=== PATIENT | female | born 1995 | race Caucasian/White ===

== ENCOUNTER 2021-09-08 10:18 | Inpatient (IN) ==
[2021-09-08 11:13] LABS: Basophils # (auto) 0.01 K/uL (0-0.2); Basophils % (auto) 0.1 %; Eosinophils # (auto) 0.09 K/uL (0-0.5); Eosinophils % (auto) 0.8 %; Hematocrit (blood only) 31.4 % (37-47); Hemoglobin 10.6 g/dL (12.0-16.0); Immature Granulocytes # (auto) 0.05 K/uL (0.00-0.02); Immature Granulocytes % (auto) 0.5 %; Lymphocytes # (auto) 1.78 K/uL (1.2-3.4); Lymphocytes % (auto) 16.6 %; Mean Corpuscular Hemoglobin 31.1 pg (25-34); Mean Corpuscular Hgb Conc 33.8 g/dL (32-36); Mean Corpuscular Volume 92.1 fL (80-100); Mean Platelet Volume 10.5 fL (7.4-10.4); Monocytes # (auto) 0.75 K/uL (0.11-0.59); Neutrophils # (auto) 8.06 K/uL (1.4-6.5); Platelet Count 168 K/uL (130-400); RDW Coefficient of Variation 12.3 % (11.5-14.5); RDW Standard Deviation 41.4 fL (36.4-46.3); Red Blood Count 3.41 M/uL (4.2-5.4); White Blood Count 10.74 K/uL (4.8-10.8)
[2021-09-08 11:36] LABS: Albumin Globulin Ratio 0.9 (0.9-2); Albumin Level 3.1 gm/dl (3.4-5.0); BUN Creatinine Ratio 11.1 (10-20); Bilirubin,Total 0.3 mg/dl (0.2-1.0); Calcium 8.3 mg/dl (8.5-10.1); Creatinine Clr Calc Pharmacy 115.6 ml/min; Est GFR (African American) 103.7 ml/min; Est GFR (Non-African American) 89.5 ml/min; Globulin 3.3 gm/dl (2.5-4.0); Total Protein 6.4 gm/dl (6.0-8.3)
[2021-09-08 12:04] LABS: Creatinine Urine Random 70.4 mg/dl; Protein Creatinine Ratio Urine 0.2 (0-0.2); Total Protein Urine Random 17.1 mg/dl (0-11.9)
--- NOTE | 2021-09-08 12:05 | History & Physical Report ---
Date of Service September 08, 2021 Assessment & Plan (1) Dichorionic diamniotic twin gestation: (2) Gestational diabetes mellitus (GDM) affecting , antepartum: Plan: No evidence of rom, bps are elevated. labs reviewed and wnl, although creat 0.9. no sx currently. will cont to monitor bps as likely may meet criteria for gest htn in which case pt is aware that we would rec delivery. she would like to attempt vaginal delivery of twins. they are cephalic/cephalic. care collaborated with director of institutional research physician who is taking over care. History of Present Illness Chief Complaint: here for planned nsts. Primary Care Provider: Naida Aviles PA-C 26yo at 37+wks ega di/di twins presents to L&D for planned twin nsts but complaining of feeling off today. Notes walters and blurred vision in day prior. Resolved today but just feels off. Notes increased swelling. No vb. +FM x 2. Has been feeling on and off leaking for days. Its not copious but consistent. Was told by provider in office that it was possibly urine. She feels unsure. PNC c/b 1. Di/Di twins, growth us, aga, cephalic/cephalic and planning induction next . 2. GDM, diet controlled PNL Rh pos, RI, gbs neg. OBH: g1 GYNH: nl paps, no stds Allergies Allergy/AdvReac Type Severity Reaction Status Date / Time latex Allergy Mild itching Verified 09/08/21 12:11 Home Medications Medication Instructions Recorded Confirmed Type prenat.vits,adelita,ire-rccr-ujlik PO 03/07/21 09/04/21 History aspirin 81 mg tablet,delayed 81 mg PO DAILY 06/08/21 09/04/21 History release (Adult Low Dose Aspirin) ferrous sulfate 325 mg (65 mg 325 mg PO DAILY 07/27/21 09/04/21 History iron) tablet acetone (urine) test (Ketone Urine #50 ea 08/07/21 09/04/21 Rx Test) blood sugar diagnostic ([employer]on[employer]Touch #150 ea 08/07/21 09/04/21 Rx Verio test strips) lancets 33 gauge (OneTouch Delica #150 ea 08/07/21 09/04/21 Rx Plus Lancet) breast pump #1 ea 08/23/21 09/04/21 Rx Patient History Medical History History of chicken pox Surgical History History of tonsillectomy [place] teeth removed Family History (Updated 03/07/21 @ 11:56 by Jessy Baptiste, YOLY) Grandfather (Paternal) Diabetes Aunt Diabetes Denies family history of Ovarian cancer Prostate cancer Breast cancer Colorectal cancer Social History (Updated 03/07/21 @ 11:59 by Jessy Baptiste, YOLY) Smoking Status: Never smoker Second Hand Exposure: No; Hx Alcohol Use: No Hx Substance Use: No Preferred Language: Maltese Communication Ability: Effective Visual Impairment: No Limitations Hearing Ability: Normal Neurosurgery Spine Physician Required: No Beliefs That Will Affect Care: None marital status: Single marital status details: Ha Sotelo [phone] Current Living Situation: Significant Other Current Living Situation Comment: lives with FOB and Father. 1 cat and 1 dog. Father changes litter current occupational status: employed current occupation: salon Other Information That Helps Us Care for You: No Feels Safe at Home: Yes Safety Concerns: Feels Safe At This Time Assistive Devices: None Review of Systems as per Subjective / HPI Physical Exam Constitutional: WD/WN, vitals as above Gastrointestinal (Abdomen): soft gravid nt bedside u/s cephalic, cephalic Musculoskeletal: +2 edema nontender calves Neurologic: DTRS patellar +3 , no clonus Psychiatric: A+Ox3, euthymic affect Genitourinary: Manual OB Exam: + cervical dilation 1 cm, + cervical effacement 90% and + station -2 OB Exam Monitor Tracing: + external FHT monitor used (twin a and b reactive. ), + external uterine monitor used (irreg), + category I and + normal FHT variability Spec exam. no pool, some blood mucus, cx visually closed. nitrazine equivocal, ferning neg. Results & Data ([facility]) Vital Signs (Past 12 Hours) Vital Signs Temp Pulse Resp BP 09/08/21 11:03 76 149/96 H 09/08/21 10:47 56 L 144/95 H 09/08/21 10:33 97.9 F 20 09/08/21 10:29 63 139/94 Coding Level of Care Code None Diagnoses Dichorionic diamniotic twin gestation O30.049 Gestational diabetes mellitus (GDM) affecting , antepartum O24.419
--- NOTE | 2021-09-08 13:44 | Labor Progress Brief Note ---
Date of Service September 08, 2021 Subjective continues to be asx from pet standpoint Assessment & Plan (1) Preeclampsia: (2) Gestational diabetes mellitus (GDM) affecting , antepartum: (3) Dichorionic diamniotic twin gestation: Plan: Patient with elevated blood pressures at rest with sbp>160. This would be a severe blood pressure range, given this, plan on treating as pet and starting mag prophylaxis and beginning induction. Babies are both head down and she desires trial of vaginal delivery. Understands the risk including potential for vaginal delivery for one and stat c/s for second. c/s consent reviewed and signed. Exaplained Mag. Will start with pit and rothman. Patient wants epidural. Explained to patient and her support person, express understanding. Discussed with Dr. Arana who will be taking over care tomorrow. Physical Exam Physical Exam: nst reactive x 2 toco--sincere urine p/cr ratio 0.2 Results & Data ([facility]) Vital Signs (Past 12 Hours) Vital Signs Temp Pulse Resp BP 09/08/21 13:15 62 162/100 H 09/08/21 12:44 73 152/105 H 09/08/21 12:14 62 165/101 H 09/08/21 11:03 76 149/96 H 09/08/21 10:47 56 L 144/95 H 09/08/21 10:33 36.6 C 20 09/08/21 10:29 63 139/94 Coding Level of Care Code None Diagnoses Preeclampsia O14.90 Gestational diabetes mellitus (GDM) affecting , antepartum O24.419 Dichorionic diamniotic twin gestation O30.049
[2021-09-08] MEDS ORDERED: OXYTOCIN 30 UNITS/500 ML BAG IV PRN ×2 (13:50→13:52)
[2021-09-08] MEDS ORDERED: MAG SULFATE 4GM BOLUS FROM BAG IV ONE (13:52)
[2021-09-08] MEDS: NIFEdipine 10 MG CAP PO STA ×2 (14:05→14:06)
[2021-09-08] MEDS: LACTATED RINGER'S 1,000 ML IV PRN (14:17)
[2021-09-08] MEDS: MAGNESIUM SULFATE / WTR 40 GM/1,000 ML BAG IV SCH (14:20)
[2021-09-08 14:21] LABS: Hematocrit (blood only) 33.7 % (37-47); Hemoglobin 11.4 g/dL (12.0-16.0); Mean Corpuscular Hemoglobin 31.3 pg (25-34); Mean Corpuscular Hgb Conc 33.8 g/dL (32-36); Mean Corpuscular Volume 92.6 fL (80-100); Mean Platelet Volume 10.8 fL (7.4-10.4); Platelet Count 196 K/uL (130-400); RDW Coefficient of Variation 12.2 % (11.5-14.5); RDW Standard Deviation 41.9 fL (36.4-46.3); Red Blood Count 3.64 M/uL (4.2-5.4); White Blood Count 12.03 K/uL (4.8-10.8)
--- NOTE | 2021-09-08 14:51 | Labor Progress Brief Note ---
Date of Service September 08, 2021 Subjective Patient anxious and tearful but doing well. Lots going on. Got very hot from her Mag bolus. Assessment & Plan (1) Preeclampsia: (2) Gestational diabetes mellitus (GDM) affecting , antepartum: (3) Dichorionic diamniotic twin gestation: Plan: rothman in and will start pit. mag bolus given and now running at 2gm /hr. Did not give the nifedipine as bp was 140/90. Will continue to monitor closely. Will need to monitor hourly i/o. hourly blood sugars. fetus category 1 x 2. Admission and Anticipated Discharge Date Admission Date: September 08, 2021 Physical Exam Physical Exam: cx--/-2/mid/mod toco--sincere efm--both baselines 130s with mod variability, accels for both to 160s, no decels latex free rothman placed under direct visualization, filled with 30 sterile water Results & Data ([facility]) Vital Signs (Past 12 Hours) Vital Signs Temp Pulse Resp BP Pulse Ox 09/08/21 14:43 89 98 09/08/21 14:38 103 H 139/106 H 99 09/08/21 14:33 93 H 98 09/08/21 14:28 86 97 09/08/21 14:23 97 H 99 09/08/21 14:22 96 H 149/106 H 09/08/21 14:02 58 L 141/94 H 09/08/21 13:45 56 L 168/99 H 09/08/21 13:15 62 162/100 H 09/08/21 12:44 73 152/105 H 09/08/21 12:14 62 165/101 H 09/08/21 11:03 76 149/96 H 09/08/21 10:47 56 L 144/95 H 09/08/21 10:33 36.6 C 20 09/08/21 10:29 63 139/94 Coding Level of Care Code None Diagnoses Preeclampsia O14.90 Gestational diabetes mellitus (GDM) affecting , antepartum O24.419 Dichorionic diamniotic twin gestation O30.049
[2021-09-08] MEDS ORDERED: SODIUM CHLORIDE 0.9% INJ 10 ML VIAL ONE (20:19)
[2021-09-08] MEDS ORDERED: BUPIVACAINE 0.25% 30 ML VIAL ONE (20:19)
[2021-09-08] MEDS ORDERED: ePHEDrine sulfate 50 MG/ML AMP ONE (20:19)
[2021-09-08] MEDS ORDERED: fentaNYL citrate 100 MCG/2 ML VIAL ONE (20:20)
[2021-09-08] MEDS ORDERED: fentaNYL 2MCG/ML ROPIVACAINE 1.25MG/ML 100 ML BAG EPI ONE (20:21)
[2021-09-08] MEDS ORDERED: ePHEDrine sulfate 50 MG/ML AMP IV PRN (21:51)
[2021-09-08] MEDS ORDERED: ONDANSETRON INJ 2 MG/ML 2 ML VIAL IV PRN (21:51)
[2021-09-08] MEDS ORDERED: NALBUPHINE HCL INJ 10 MG/ML AMP IV PRN (21:51)
[2021-09-08] MEDS ORDERED: NALOXONE HCL 0.4 MG/1 ML VIAL/CARP IV PRN (21:51)
[2021-09-08] MEDS ORDERED: fentaNYL 2MCG/ML ROPIVACAINE 1.25MG/ML 100 ML BAG EPI PRN (21:51)
[2021-09-08] MEDS ORDERED: diphenhydrAMINE 50 MG/ML VIAL IV PRN (21:51)
[2021-09-08] MEDS ORDERED: NALOXONE HCL 1 MG in SODIUM CHLORIDE 0.9% 1000ML 1,000 ML IV PRN (21:51)
--- NOTE | 2021-09-08 22:09 | Anesthesiology Consultation ---
Date of Service September 08, 2021 Assessment & Plan (1) Encounter for pre-operative examination: Chart Review Chart Review: Patient NOT seen in Pre Admission Testing and Acceptable Risk for Labor Epidural Consults Requested none History Height/Weight Height: 5 ft 7 in Weight: 97.522 kg Allergies Allergy/AdvReac Type Severity Reaction Status Date / Time latex Allergy Mild itching Verified 09/08/21 12:11 Medications Home Medications Medication Instructions Recorded Confirmed Last Taken aspirin 81 mg tablet,delayed 81 mg PO DAILY 06/08/21 09/08/21 09/07/21 08:00 release (Adult Low Dose Aspirin) ferrous sulfate 325 mg (65 mg 325 mg PO DAILY 07/27/21 09/08/21 09/07/21 08:00 iron) tablet acetone (urine) test (Ketone Urine #50 ea 08/07/21 09/04/21 Unknown Test) blood sugar diagnostic ([employer]WD TechnologiesTouch #150 ea 08/07/21 09/04/21 Unknown Verio test strips) lancets 33 gauge (OneTouch Delica #150 ea 08/07/21 09/04/21 Unknown Plus Lancet) breast pump #1 ea 08/23/21 09/04/21 Unknown prenat.vits,adelita,fda-[id number]-knszr 1 tab PO DAILY 09/08/21 09/08/21 09/07/21 08:00 Active Medications Generic Name Dose Route Start Last Admin Trade Name Freq PRN Reason Stop Dose Admin Lactated Ringer's 1,000 mls @ 125 mls/hr 09/08/21 13:50 09/08/21 19:02 Lr IV 09/10/21 13:49 75 mls/hr .Q8H PRN Infusion L&D Protocol Protocol Oxytocin 30 units in 500 mls @ 16 mls/hr 09/08/21 13:52 09/08/21 20:30 Pitocin IV 09/10/21 13:51 0.96 units/hr .Q24H PRN 16 mls/hr Labor Induction/Augmentation Titration Protocol 0.96 UNITS/HR Magnesium Sulfate 40 gm in 1,000 mls @ 50 mls/hr 09/08/21 14:00 09/08/21 20:01 Magnesium Sulfate / Wtr IV 10/08/21 13:59 50 mls/hr .Q20H MIKE Infusion Past Medical History Medical History History of chicken pox Exercise / Class Metabolic Activity II 4-5 Yardwork/Stairs/Walk up hill Past Family History Family History Grandfather (Paternal) Diabetes Aunt Diabetes Denies family history of Ovarian cancer Prostate cancer Breast cancer Colorectal cancer Past Surgical History Surgical History History of tonsillectomy [place] teeth removed Past Anesthesia History No Hx of Anesthesia Complications and No Family Hx of Anesthesia Complications Social History Smoking Status: Never smoker Hx Alcohol Use: No Hx Substance Use: No Physical Exam Vital Signs Last Vital Signs Temp 36.9 C 09/08/21 19:30 Pulse 84 09/08/21 22:39 Resp 18 09/08/21 19:53 BP 99/65 L 09/08/21 22:38 Pulse Ox 100 09/08/21 22:39 Testing Laboratory Results 09/08/21 14:03 09/08/21 11:05 Blood Type A Positive 09/08/21 11:05 Antibody Screen NEGATIVE 09/08/21 11:05 09/08/21 09/08/21 09/08/21 22:09 20:12 17:45 POC Glucose 79 88 75 09/08/21 09/08/21 09/08/21 16:47 15:47 15:44 POC Glucose 85 75 69 L*
[2021-09-08] MEDS ORDERED: ACETAMINOPHEN 500 MG TAB PO ONE (22:19)
--- NOTE | 2021-09-09 00:20 | Labor Progress Brief Note ---
Date of Service September 09, 2021 Subjective comfortable with epidural Assessment & Plan (1) Dichorionic diamniotic twin gestation: Plan: arom and iupc placed to run pitocin. fetus category one x 2. patient is comfor table with epidural . Admission and Anticipated Discharge Date Admission Date: September 08, 2021 Physical Exam Physical Exam: cx--/-2 toco--difficult tracing because belly is so tight, q2-4, pit at 18, iupc placed arom--copious clear efm--reactive nst x 2, baseline 130 for both, mod variability, +accels , no decels Results & Data ([facility]) Vital Signs (Past 12 Hours) Vital Signs Temp Pulse Resp BP Pulse Ox 09/09/21 00:14 95 H 98 09/09/21 00:13 88 133/86 09/09/21 00:09 87 99 09/09/21 00:06 103 H 92 09/09/21 00:04 110 H 100 09/08/21 23:59 93 H 125/77 98 09/08/21 23:54 90 98 09/08/21 23:49 89 96 09/08/21 23:46 88 94 09/08/21 23:44 86 95 09/08/21 23:43 85 116/69 09/08/21 23:40 83 94 09/08/21 23:39 82 94 09/08/21 23:34 84 97 09/08/21 23:29 88 98 09/08/21 23:28 90 123/71 09/08/21 23:24 84 98 09/08/21 23:19 93 H 97 09/08/21 23:15 86 119/69 09/08/21 23:14 87 96 09/08/21 23:09 84 98 09/08/21 23:04 88 97 09/08/21 22:59 79 98 09/08/21 22:58 88 118/74 09/08/21 22:55 96 H 118/62 09/08/21 22:54 96 H 99 09/08/21 22:52 89 130/64 09/08/21 22:49 96 H 135/66 99 09/08/21 22:45 90 152/65 H 09/08/21 22:44 90 99 09/08/21 22:43 88 124/68 09/08/21 22:39 84 100 09/08/21 22:38 83 99/65 L 09/08/21 22:34 71 99 09/08/21 22:29 122 H 100 09/08/21 22:24 107 H 100 09/08/21 22:20 105 H 155/100 H 09/08/21 22:19 96 H 100 09/08/21 22:14 119 H 100 09/08/21 22:09 86 100 09/08/21 22:04 91 H 97 09/08/21 21:59 95 H 99 09/08/21 21:54 81 98 09/08/21 21:49 86 133/83 100 09/08/21 21:44 99 H 99 09/08/21 21:39 82 99 09/08/21 21:34 85 99 09/08/21 21:29 88 100 09/08/21 21:24 87 99 09/08/21 21:19 86 100 09/08/21 21:18 90 136/88 09/08/21 21:14 93 H 99 09/08/21 21:09 100 H 99 09/08/21 21:04 95 H 98 09/08/21 20:59 99 H 99 09/08/21 20:54 93 H 99 09/08/21 20:49 92 H 140/93 100 09/08/21 20:44 92 H 100 09/08/21 20:39 90 100 09/08/21 20:34 99 H 99 09/08/21 20:28 99 H 98 09/08/21 20:23 97 H 99 09/08/21 20:19 90 138/90 09/08/21 20:18 97 H 98 09/08/21 20:13 107 H 98 09/08/21 20:08 91 H 99 09/08/21 20:03 91 H 98 09/08/21 19:58 91 H 98 09/08/21 19:53 91 H 18 99 09/08/21 19:50 91 H 145/91 H 09/08/21 19:48 97 H 98 09/08/21 19:43 101 H 98 09/08/21 19:38 109 H 96 09/08/21 19:33 119 H 96 09/08/21 19:32 121 H 135/99 09/08/21 19:30 36.9 C 115 H 18 139/102 H 09/08/21 19:28 122 H 97 09/08/21 19:23 110 H 97 09/08/21 19:18 115 H 97 09/08/21 19:13 97 H 99 09/08/21 19:08 96 H 147/93 H 98 09/08/21 19:03 83 100 09/08/21 18:58 86 100 09/08/21 18:53 79 138/87 99 09/08/21 18:48 79 100 09/08/21 18:43 85 98 09/08/21 18:38 81 142/90 H 98 09/08/21 18:33 69 99 09/08/21 18:28 72 99 09/08/21 18:23 77 135/82 99 09/08/21 18:20 20 09/08/21 18:18 91 H 99 09/08/21 18:13 80 98 09/08/21 18:08 79 144/92 H 97 09/08/21 18:03 84 98 09/08/21 17:58 85 98 09/08/21 17:54 84 143/86 H 09/08/21 17:53 93 H 97 09/08/21 17:48 79 98 09/08/21 17:43 84 98 09/08/21 17:38 77 134/87 96 09/08/21 17:33 84 96 09/08/21 17:28 75 98 09/08/21 17:23 74 130/87 97 09/08/21 17:20 20 09/08/21 17:18 73 97 09/08/21 17:13 70 97 09/08/21 17:09 68 137/89 09/08/21 17:08 70 97 09/08/21 17:03 72 98 09/08/21 16:58 68 97 09/08/21 16:53 77 97 09/08/21 16:48 77 98 09/08/21 16:43 71 97 09/08/21 16:39 67 131/88 09/08/21 16:38 70 98 09/08/21 16:33 86 97 09/08/21 16:30 36.7 C 09/08/21 16:28 76 99 09/08/21 16:23 69 135/85 98 09/08/21 16:20 20 09/08/21 16:18 70 97 09/08/21 16:13 64 98 09/08/21 16:10 82 144/86 H 09/08/21 16:08 71 98 09/08/21 16:03 78 98 09/08/21 15:58 69 97 09/08/21 15:53 70 141/88 H 98 09/08/21 15:48 74 99 09/08/21 15:43 73 98 09/08/21 15:39 61 143/97 H 09/08/21 15:38 67 98 09/08/21 15:33 82 98 09/08/21 15:28 78 99 09/08/21 15:24 72 20 141/91 H 09/08/21 15:23 68 98 09/08/21 15:20 20 09/08/21 15:18 77 99 09/08/21 15:13 65 99 09/08/21 15:09 71 20 145/100 H 09/08/21 15:08 69 97 09/08/21 15:03 75 98 09/08/21 14:58 101 H 97 09/08/21 14:53 78 20 149/94 H 98 09/08/21 14:48 85 98 09/08/21 14:43 89 98 09/08/21 14:38 103 H 20 139/106 H 99 09/08/21 14:33 93 H 98 09/08/21 14:28 86 97 09/08/21 14:23 97 H 99 09/08/21 14:22 96 H 20 149/106 H 09/08/21 14:02 58 L 141/94 H 09/08/21 13:45 56 L 168/99 H 09/08/21 13:15 62 162/100 H 09/08/21 12:44 73 152/105 H 09/08/21 12:30 36.6 C Coding Level of Care Code None Diagnoses Dichorionic diamniotic twin gestation O30.049
--- NOTE | 2021-09-09 00:49 | Communication Note ---
Date of Service: September 09, 2021 contractions are poor by iupc. Will increase pit max to 30. fetus category one x 2.
[2021-09-09] MEDS: LACTATED RINGER'S 1,000 ML IV PRN (03:30)
--- NOTE | 2021-09-09 05:28 | Labor Progress Brief Note ---
Date of Service September 09, 2021 Subjective doing well Assessment & Plan (1) Dichorionic diamniotic twin gestation: (2) Preeclampsia: Plan: allow to labor down, both babies reassuring. Will likely move to OR for [facility] in about one hour. anticipate . Admission and Anticipated Discharge Date Admission Date: September 08, 2021 Physical Exam Physical Exam: cx-- toco--difficult tracing. q2-4min, pit at 26 efm--baby1--120s with mod variability, accels to 130s, no decels baby2--110s with mod variabiltiy, accels to 130s, no decels Results & Data ([facility]) Vital Signs (Past 12 Hours) Vital Signs Temp Pulse Resp BP Pulse Ox 09/09/21 05:24 86 100 09/09/21 05:19 89 99 09/09/21 05:14 83 99 09/09/21 05:09 92 H 99 09/09/21 05:04 90 99 09/09/21 04:59 70 99 09/09/21 04:55 76 133/89 09/09/21 04:54 76 98 09/09/21 04:49 82 98 09/09/21 04:44 73 97 09/09/21 04:40 77 137/91 09/09/21 04:39 76 95 09/09/21 04:34 70 95 09/09/21 04:29 72 96 09/09/21 04:25 75 125/85 09/09/21 04:24 73 95 09/09/21 04:19 74 96 09/09/21 04:14 72 96 09/09/21 04:11 71 133/87 09/09/21 04:09 70 96 09/09/21 04:04 89 98 09/09/21 04:00 36.6 C 18 09/09/21 03:59 96 H 97 09/09/21 03:57 80 137/77 09/09/21 03:54 82 97 09/09/21 03:50 68 94 09/09/21 03:49 64 95 09/09/21 03:44 67 95 09/09/21 03:43 67 94 09/09/21 03:41 67 129/83 09/09/21 03:39 69 97 09/09/21 03:38 68 94 09/09/21 03:34 68 93 09/09/21 03:30 18 09/09/21 03:29 68 92 09/09/21 03:26 74 94 09/09/21 03:25 69 121/78 09/09/21 03:24 63 91 09/09/21 03:19 67 91 09/09/21 03:14 66 91 09/09/21 03:10 70 110/73 09/09/21 03:09 67 90 09/09/21 03:05 65 94 09/09/21 03:04 67 92 09/09/21 02:59 66 92 09/09/21 02:55 64 121/78 09/09/21 02:54 65 91 09/09/21 02:49 65 91 09/09/21 02:44 70 90 09/09/21 02:40 70 120/78 09/09/21 02:39 68 91 09/09/21 02:34 68 91 09/09/21 02:30 37.0 C 18 09/09/21 02:29 66 92 09/09/21 02:25 70 121/79 09/09/21 02:24 65 94 09/09/21 02:23 66 94 09/09/21 02:19 77 95 09/09/21 02:15 68 94 09/09/21 02:14 87 94 09/09/21 02:11 65 129/80 09/09/21 02:10 79 94 09/09/21 02:09 79 95 09/09/21 02:05 77 94 09/09/21 02:04 77 95 09/09/21 01:59 84 95 09/09/21 01:54 87 129/80 95 09/09/21 01:51 82 113/71 09/09/21 01:49 83 96 09/09/21 01:48 93 H 125/78 09/09/21 01:45 82 114/66 09/09/21 01:44 86 96 09/09/21 01:42 71 134/82 09/09/21 01:39 77 128/81 98 09/09/21 01:34 81 97 09/09/21 01:30 18 09/09/21 01:29 88 99 09/09/21 01:28 86 137/87 09/09/21 01:24 87 97 09/09/21 01:20 80 94 09/09/21 01:19 76 97 09/09/21 01:15 77 128/79 94 09/09/21 01:14 84 96 09/09/21 01:09 83 96 09/09/21 01:04 90 99 09/09/21 01:00 18 09/09/21 00:59 88 97 09/09/21 00:58 82 129/89 09/09/21 00:54 82 99 09/09/21 00:49 83 95 09/09/21 00:44 87 98 09/09/21 00:43 93 H 140/96 09/09/21 00:39 87 96 09/09/21 00:34 88 100 09/09/21 00:29 89 100 09/09/21 00:28 93 H 139/95 09/09/21 00:24 89 97 09/09/21 00:19 84 96 09/09/21 00:14 95 H 98 09/09/21 00:13 88 133/86 09/09/21 00:10 36.9 C 09/09/21 00:09 87 99 09/09/21 00:06 103 H 92 09/09/21 00:04 110 H 100 09/08/21 23:59 93 H 125/77 98 09/08/21 23:54 90 98 09/08/21 23:49 89 96 09/08/21 23:46 88 94 09/08/21 23:44 86 95 09/08/21 23:43 85 116/69 09/08/21 23:40 83 94 09/08/21 23:39 82 94 09/08/21 23:34 84 97 09/08/21 23:29 88 98 09/08/21 23:28 90 123/71 09/08/21 23:24 84 98 09/08/21 23:19 93 H 97 09/08/21 23:15 86 119/69 09/08/21 23:14 87 96 09/08/21 23:09 84 98 09/08/21 23:04 88 97 09/08/21 22:59 79 98 09/08/21 22:58 88 118/74 09/08/21 22:55 96 H 118/62 09/08/21 22:54 96 H 99 09/08/21 22:52 89 130/64 09/08/21 22:49 96 H 135/66 99 09/08/21 22:45 90 152/65 H 09/08/21 22:44 90 99 09/08/21 22:43 88 124/68 09/08/21 22:39 84 100 09/08/21 22:38 83 99/65 L 09/08/21 22:34 71 99 09/08/21 22:29 122 H 100 09/08/21 22:24 107 H 100 09/08/21 22:20 105 H 155/100 H 09/08/21 22:19 96 H 100 09/08/21 22:14 119 H 100 09/08/21 22:09 86 100 09/08/21 22:04 91 H 97 09/08/21 21:59 95 H 99 09/08/21 21:54 81 98 09/08/21 21:49 86 133/83 100 09/08/21 21:44 99 H 99 09/08/21 21:39 82 99 09/08/21 21:34 85 99 09/08/21 21:29 88 100 09/08/21 21:24 87 99 09/08/21 21:19 86 100 09/08/21 21:18 90 136/88 09/08/21 21:14 93 H 99 09/08/21 21:09 100 H 99 09/08/21 21:04 95 H 98 09/08/21 20:59 99 H 99 09/08/21 20:54 93 H 99 09/08/21 20:49 92 H 140/93 100 09/08/21 20:44 92 H 100 09/08/21 20:39 90 100 09/08/21 20:34 99 H 99 09/08/21 20:28 99 H 98 09/08/21 20:23 97 H 99 09/08/21 20:19 90 138/90 09/08/21 20:18 97 H 98 09/08/21 20:13 107 H 98 09/08/21 20:08 91 H 99 09/08/21 20:03 91 H 98 09/08/21 19:58 91 H 98 09/08/21 19:53 91 H 18 99 09/08/21 19:50 91 H 145/91 H 09/08/21 19:48 97 H 98 09/08/21 19:43 101 H 98 09/08/21 19:38 109 H 96 09/08/21 19:33 119 H 96 09/08/21 19:32 121 H 135/99 09/08/21 19:30 36.9 C 115 H 18 139/102 H 09/08/21 19:28 122 H 97 09/08/21 19:23 110 H 97 09/08/21 19:18 115 H 97 09/08/21 19:13 97 H 99 09/08/21 19:08 96 H 147/93 H 98 09/08/21 19:03 83 100 09/08/21 18:58 86 100 09/08/21 18:53 79 138/87 99 09/08/21 18:48 79 100 09/08/21 18:43 85 98 09/08/21 18:38 81 142/90 H 98 09/08/21 18:33 69 99 09/08/21 18:28 72 99 09/08/21 18:23 77 135/82 99 09/08/21 18:20 20 09/08/21 18:18 91 H 99 09/08/21 18:13 80 98 09/08/21 18:08 79 144/92 H 97 09/08/21 18:03 84 98 09/08/21 17:58 85 98 09/08/21 17:54 84 143/86 H 09/08/21 17:53 93 H 97 09/08/21 17:48 79 98 09/08/21 17:43 84 98 09/08/21 17:38 77 134/87 96 09/08/21 17:33 84 96 09/08/21 17:28 75 98 Coding Level of Care Code None Diagnoses Dichorionic diamniotic twin gestation O30.049 Preeclampsia O14.90
[2021-09-09] MEDS: MAGNESIUM SULFATE / WTR 40 GM/1,000 ML BAG IV SCH (06:08)
--- NOTE | 2021-09-09 06:54 | Communication Note ---
Date of Service: September 09, 2021 Bolused patient twice overnight per patient and nursing request for increased back pain. Placed patient on monitor and VSS. Used 3ml of 2% lidocaine and 0.5% ropivicaine with each bolus. Obtained good pain relief after each bolus.
--- NOTE | 2021-09-09 08:45 | Delivery Summary ---
Vaginal Delivery Summary Date of Service September 09, 2021 Vaginal Delivery Summary Pre-operative Diagnosis: di di twin iup at 37 4/7 weeks severe pet gestational diabetes Post-operative Diagnosis: same Procedure: rothman bulb for cervical ripening pitocin induction arom for clear fluid of baby A/right baby EBL: 200cc Anesthesia: epidural Procedure: The patient presented to labor and delivery for nsts. Her pressures were found to be elevated and she was admitted with pet with severe features. Labs were normal. Both babies were cephalic and she elected for attempt at vaginal delivery. She had a rothman bulb for cervical ripening and concurrent pitocin. She then underwent an epidural just after the bulb fell out. She was then 4cm and arom done. She progressed to 9cm and then labored down for an hour. She was then c/c/+2 and was transferred to the OR. Once all were assembled, pushing started. The patient pushed for approximately 4 contractions to deliver a viable male infant in miguel position. The nose and mouth were bulb suctioned on the perineum and the rest of the was then delivered without difficulty. A nuchal cord x 1 was reduced. The nose and mouth were again bulb suctioned. The cord was clamped and cut and the was handed off to the awaiting peds for drying and attention. Cord blood and segment obtained. Dr. Arana, present for delivery, was operating the ultrasound. FHT on baby B reassuring and using fundal pressure, she pushed the head into my hand and I guided the cephalic into the cervix and then did arom of baby B for clear fluid. The contractions unfortunately decreased and spaced after the delivery of the first baby. After waiting an hour, the cephalic at 0 station and cx was 9cm. Could not push through this cervix. So she was taken out of the stirrups and placed in supine position. She got painful and her epidural was redosed. Will allow the patient to labor down. FHT in the 120s with mod variability for baby B. Patient left in the care of Dr. Arana. [facility] Vaginal Delivery Charge Delivery Type Details:
[2021-09-09] MEDS ORDERED: LIDOCAINE 1% LOCAL 20 ML VIAL ONE (09:25)
[2021-09-09] MEDS ORDERED: SODIUM CHLORIDE 0.9% 250 ML IV PRN ×2 (09:29→14:38)
[2021-09-09] MEDS ORDERED: METHYLERGONOVINE MALEATE 0.2 MG/ML AMP ONE (09:35)
[2021-09-09] MEDS: OXYTOCIN 30 UNITS/500 ML BAG IV PRN ×2 (09:41→10:10)
[2021-09-09 09:43] LABS: Basophils # (auto) 0.01 K/uL (0-0.2); Basophils % (auto) 0.1 %; Hematocrit (blood only) 29.9 % (37-47); Hemoglobin 10.1 g/dL (12.0-16.0); Immature Granulocytes # (auto) 0.06 K/uL (0.00-0.02); Immature Granulocytes % (auto) 0.4 %; Lymphocytes # (auto) 1.06 K/uL (1.2-3.4); Lymphocytes % (auto) 7.7 %; Mean Corpuscular Hemoglobin 31.1 pg (25-34); Mean Platelet Volume 10.2 fL (7.4-10.4); Monocytes # (auto) 0.67 K/uL (0.11-0.59); Monocytes % (auto) 4.9 %; Neutrophils # (auto) 11.95 K/uL (1.4-6.5); Neutrophils % (auto) 86.9 %; Platelet Count 174 K/uL (130-400); RDW Coefficient of Variation 12.2 % (11.5-14.5); RDW Standard Deviation 41.6 fL (36.4-46.3); Red Blood Count 3.25 M/uL (4.2-5.4); White Blood Count 13.75 K/uL (4.8-10.8)
[2021-09-09 09:45] LABS: Mean Corpuscular Hgb Conc 33.8 g/dL (32-36)
[2021-09-09] MEDS ORDERED: miSOPROStoL 200 MCG TAB ONE (10:01)
--- NOTE | 2021-09-09 10:10 | Delivery Summary ---
Vaginal Delivery Summary Date of Service September 09, 2021 Vaginal Delivery Summary (this was 2nd twin delivery) and 1st Degree LAC The patient had delivery of twin A previously by Dr. Ledbetter. At approximately 2+hours later, patient with urge to push now completely dilated and I was called for delivery. Patient pushed to deliver a viable male Apgars 8 and 9 via over small vaginal/1st degree perineal laceration. Mouth and nose bulb suctioned at perineum. Shoulders and body delivered with ease. was vigorous and crying at . Cord clamped and infant to maternal abdomen where the cord was then doubly clamped and cut. Placenta delivered spontaneously and intact, three-vessel cord. Hemostasis not achieved with dilute pitocin and uterine massage and in fact blood pouring from vagina. Street Photographer's hand in uterus and swept x 2 with no retained poc's. Bimanual massage started and cytotec 800mcg placed rectally. Evidence of continued heavy bleeding c/w uterine atony and bakri balloon readied and placed, 400cc sterile water infused and ff firm at umbilicus. BP had been noted in 90s/60s during this process and IM methergine given and 2nd iv site placed. T&C x 2 units and stat cbc sent with obtaining 2nd iv site, which was done by anesthesia. Bhatia catheter placed for continual drainage of the bladder under sterile conditions. Cervix and sulci intact. Local lidocaine 1% given for anesthesia and vaginal laceration repaired in usual fashion with 3-0 vicryl. Right periurethral laceration repaired with 3-0 vicryl after local lidocaine anesthesia. EBL 1500 cc (which included ebl from prior delivery). Patient readied to move upstairs from OR. Blood ready but held. CBC was pending and so pending plt count anesth was waiting to remove epidural. Events reviewed with patient and partner. Possible extreme need for surgery to manage bleeding and/or future hysterectomy reviewed. Will keep them up to date on my thoughts. Questions answered to their apparent satisfaction. [facility] Vaginal Delivery Charge Delivery Type Details: (this was 2nd twin delivery) and 1st Degree LAC
[2021-09-09] MEDS ORDERED: miSOPROStoL 200 MCG TAB PR ONE (10:23)
[2021-09-09] MEDS ORDERED: HYDROCORTISONE ACETATE 25 MG SUPP PR PRN (10:23)
[2021-09-09] MEDS ORDERED: BENZOCAINE 20% AER SPR 82.5 GM CAN EXT PRN (10:23)
[2021-09-09] MEDS ORDERED: oxyCODONE/ACETAMINOPHEN 5mg/325mg TAB PO PRN (10:23)
[2021-09-09] MEDS ORDERED: DIPHTHERIA/TETANUS/PERTUSSIS 0.5 ML SYR/VIAL IM ONE (10:23)
[2021-09-09] MEDS ORDERED: METHYLERGONOVINE MALEATE 0.2 MG/ML AMP IM ONE (10:23)
[2021-09-09] MEDS: IBUPROFEN 600 MG TAB PO PRN ×3 (11:21→20:46)
[2021-09-09] MEDS: OXYTOCIN 20 UNITS in LACTATED RINGER'S 1,000 ML IV SCH ×2 (11:27→19:25)
[2021-09-09] MEDS: ceFAZolin 2000MG 2,000 MG/15 ML SYR IV SCH ×2 (11:54→20:49)
--- NOTE | 2021-09-09 12:27 | Obstetrical Progress Note ---
Date of Service September 09, 2021 Assessment & Plan (1) Dichorionic diamniotic twin gestation: (2) Gestational diabetes mellitus (GDM) affecting , antepartum: (3) Preeclampsia: Plan: pt clinically stable. bps are ok, not severe range and just measured output from bakri. trying to gauge when and if to restart mag but want to watch output. urine output was 200cc. will see what ongoing output from bakri is as well as hgb next due to be drawn at 2pm and bp trend. Pt and partner aware of plan. Deny questions. Admission and Anticipated Discharge Date Admission Date: September 08, 2021 Subjective pt doing well. denies complaints. holding baby a. partner by bedside. Review of Systems Constitutional: as per Subjective / HPI Physical Exam Constitutional: WD/WN, vitals as above Psychiatric: A+Ox3, euthymic affect Genitourinary: FF at u. drainage from bakri about 175cc, watery. drained to monitor. Results & Data ([facility]) Vital Signs (Past 12 Hours) Vital Signs Temp Pulse Resp BP Pulse Ox 09/09/21 12:21 89 98 09/09/21 12:18 82 121/69 09/09/21 12:16 92 H 97 09/09/21 12:11 99.3 F 87 20 100 09/09/21 12:06 97 H 99 09/09/21 12:02 97 H 20 119/75 09/09/21 12:01 97 H 99 09/09/21 11:56 86 99 09/09/21 11:51 99 H 100 09/09/21 11:47 93 H 131/84 09/09/21 11:46 91 H 100 09/09/21 11:41 94 H 100 09/09/21 11:36 93 H 100 09/09/21 11:34 93 H 138/90 09/09/21 11:32 101 H 20 131/95 09/09/21 11:31 98 H 99 09/09/21 11:26 87 97 09/09/21 11:21 86 99 09/09/21 11:17 91 H 125/85 09/09/21 11:16 92 H 100 09/09/21 11:11 88 99 09/09/21 11:06 87 100 09/09/21 11:02 98.8 F 87 20 120/78 09/09/21 11:01 83 100 09/09/21 10:56 81 100 09/09/21 10:51 90 100 09/09/21 10:47 80 20 114/75 09/09/21 10:46 82 96 09/09/21 10:41 84 100 09/09/21 10:36 91 H 100 09/09/21 10:32 86 16 114/72 09/09/21 10:31 85 98 09/09/21 10:26 84 98 09/09/21 10:21 82 97 09/09/21 10:17 90 110/71 91 09/09/21 10:16 82 16 96 09/09/21 10:11 102 H 99 09/09/21 10:06 92 H 96 09/09/21 10:05 99 H 93 09/09/21 10:02 99.1 F 106 H 20 113/63 09/09/21 10:01 106 H 99 09/09/21 08:52 88 20 135/90 09/09/21 08:42 97 09/09/21 08:40 85 22 135/78 09/09/21 08:25 92 H 20 127/82 97 09/09/21 08:20 84 20 135/79 09/09/21 08:15 20 09/09/21 07:15 20 09/09/21 06:40 93 H 128/84 09/09/21 06:34 94 H 96 09/09/21 06:29 98 H 98 09/09/21 06:25 83 125/75 09/09/21 06:24 86 96 09/09/21 06:19 95 H 97 09/09/21 06:14 97 H 96 09/09/21 06:10 93 H 126/81 09/09/21 06:09 89 96 09/09/21 06:04 100 H 97 09/09/21 06:00 18 09/09/21 05:59 101 H 98 09/09/21 05:55 89 117/93 09/09/21 05:54 101 H 99 09/09/21 05:49 87 99 09/09/21 05:44 86 100 09/09/21 05:41 85 132/88 09/09/21 05:39 85 100 09/09/21 05:34 86 100 09/09/21 05:29 81 99 09/09/21 05:26 85 158/86 H 09/09/21 05:24 86 100 09/09/21 05:19 89 99 09/09/21 05:14 83 99 09/09/21 05:09 92 H 99 09/09/21 05:04 90 99 09/09/21 04:59 70 99 09/09/21 04:55 76 133/89 09/09/21 04:54 76 98 09/09/21 04:49 82 98 09/09/21 04:44 73 97 09/09/21 04:40 77 137/91 09/09/21 04:39 76 95 09/09/21 04:34 70 95 09/09/21 04:29 72 96 09/09/21 04:25 75 125/85 09/09/21 04:24 73 95 09/09/21 04:19 74 96 09/09/21 04:14 72 96 09/09/21 04:11 71 133/87 09/09/21 04:09 70 96 09/09/21 04:04 89 98 09/09/21 04:00 97.9 F 18 09/09/21 03:59 96 H 97 09/09/21 03:57 80 137/77 09/09/21 03:54 82 97 09/09/21 03:50 68 94 09/09/21 03:49 64 95 09/09/21 03:44 67 95 09/09/21 03:43 67 94 09/09/21 03:41 67 129/83 09/09/21 03:39 69 97 09/09/21 03:38 68 94 09/09/21 03:34 68 93 09/09/21 03:30 18 09/09/21 03:29 68 92 09/09/21 03:26 74 94 09/09/21 03:25 69 121/78 09/09/21 03:24 63 91 09/09/21 03:19 67 91 09/09/21 03:14 66 91 09/09/21 03:10 70 110/73 09/09/21 03:09 67 90 09/09/21 03:05 65 94 09/09/21 03:04 67 92 09/09/21 02:59 66 92 09/09/21 02:55 64 121/78 09/09/21 02:54 65 91 09/09/21 02:49 65 91 09/09/21 02:44 70 90 09/09/21 02:40 70 120/78 09/09/21 02:39 68 91 09/09/21 02:34 68 91 09/09/21 02:30 98.6 F 18 09/09/21 02:29 66 92 09/09/21 02:25 70 121/79 09/09/21 02:24 65 94 09/09/21 02:23 66 94 09/09/21 02:19 77 95 09/09/21 02:15 68 94 09/09/21 02:14 87 94 09/09/21 02:11 65 129/80 09/09/21 02:10 79 94 09/09/21 02:09 79 95 09/09/21 02:05 77 94 09/09/21 02:04 77 95 09/09/21 01:59 84 95 09/09/21 01:54 87 129/80 95 09/09/21 01:51 82 113/71 09/09/21 01:49 83 96 09/09/21 01:48 93 H 125/78 09/09/21 01:45 82 114/66 09/09/21 01:44 86 96 09/09/21 01:42 71 134/82 09/09/21 01:39 77 128/81 98 09/09/21 01:34 81 97 09/09/21 01:30 18 09/09/21 01:29 88 99 09/09/21 01:28 86 137/87 09/09/21 01:24 87 97 09/09/21 01:20 80 94 09/09/21 01:19 76 97 09/09/21 01:15 77 128/79 94 09/09/21 01:14 84 96 09/09/21 01:09 83 96 09/09/21 01:04 90 99 09/09/21 01:00 18 09/09/21 00:59 88 97 09/09/21 00:58 82 129/89 09/09/21 00:54 82 99 09/09/21 00:49 83 95 09/09/21 00:44 87 98 09/09/21 00:43 93 H 140/96 09/09/21 00:39 87 96 09/09/21 00:34 88 100 09/09/21 00:29 89 100 09/09/21 00:28 93 H 139/95 09/09/21 00:24 89 97 PG Care Time/CCT Total # of Minutes Spent Total Time Spent with Patient: Total time spent is greater than 50% in coordination of care (as documented) at patient's floor/unit and/or counseling patient: Coding Level of Care Code None Diagnoses Dichorionic diamniotic twin gestation O30.049 Gestational diabetes mellitus (GDM) affecting , antepartum O24.419 Preeclampsia O14.90
--- NOTE | 2021-09-09 14:41 | Communication Note ---
Date of Service: September 09, 2021 Hgb has returned 7. Will plan to transfuse 2 units now. Given bp trend, feel better to keep control of pph than restart magnesium with normal bps and no sx at this time.
[2021-09-09] MEDS: ACETAMINOPHEN 325 MG TAB PO PRN (17:18)
[2021-09-09] MEDS: DOCUSATE SODIUM 100 MG CAP PO SCH (20:44)
[2021-09-10] MEDS: OXYTOCIN 20 UNITS in LACTATED RINGER'S 1,000 ML IV SCH ×2 (03:41→12:16)
[2021-09-10] MEDS: ACETAMINOPHEN 325 MG TAB PO PRN ×3 (04:13→16:06)
[2021-09-10] MEDS: ceFAZolin 2000MG 2,000 MG/15 ML SYR IV SCH (07:01)
[2021-09-10 07:13] LABS: Hematocrit (blood only) 22.6 % (37-47); Hemoglobin 7.7 g/dL (12.0-16.0); Mean Corpuscular Hemoglobin 30.7 pg (25-34); Mean Corpuscular Hgb Conc 34.1 g/dL (32-36); Platelet Count 128 K/uL (130-400); RDW Coefficient of Variation 13.5 % (11.5-14.5); RDW Standard Deviation 44.4 fL (36.4-46.3); Red Blood Count 2.51 M/uL (4.2-5.4)
[2021-09-10] MEDS: PRENATAL VITAMIN 1 TAB PO SCH (08:57)
[2021-09-10] MEDS: DOCUSATE SODIUM 100 MG CAP PO SCH ×2 (08:57→20:59)
--- NOTE | 2021-09-10 10:46 | Obstetrical Progress Note ---
Date of Service September 10, 2021 Assessment & Plan (1) care and examination: (2) Dichorionic diamniotic twin gestation: (3) hemorrhage: stable, doing well. s/p 2 u prbcs. hgb this am 7.7. will get her moving and see how she tolerates her hgb and may need additional transfusion. we shabnam back out about 100cc from bakri q hr and see how she does. she did get last dose of kefzol this am. urine output has been good. have not used pp magnesium and no severe range bps. will plan to transfer to floor later today if bleeding stable. take rothman out when bakri out. Subjective Ambulation: limited ambulation Voiding: rothman catheter in place Passing Gas:: Yes Diet Tolerance:: regular diet Lochia:: Small Feeding Type:: breast feeding breast pumping. twins doing well. no walters or visual change. sitting up and denies dizziness and lightheadedness. Constitutional: + as per Subjective / HPI Physical Exam Constitutional WD/WN, vitals as above Respiratory normal respiratory effort, lungs clear to auscultation Cardiovascular Rate/Rhythm: regular rate and regular rhythm Gastrointestinal (Abdomen) Inspection/Auscultation: abdomen normal to inspection Percussion/Palpation: abdomen soft Fundus firm at umbilicus Musculoskeletal nt calves +1 edema Neurologic grossly normal Psychiatric A+Ox3, euthymic affect Genitourinary bakri balloon deflated of 100cc fluid. Results & Data ([facility]) Vital Signs (Past 12 Hours) Vital Signs Temp Pulse Resp BP 09/10/21 09:03 73 119/72 09/10/21 07:07 72 124/91 09/10/21 07:00 98.2 F 18 09/10/21 03:28 75 18 123/81 09/10/21 03:27 98.6 F 09/09/21 23:12 98.1 F 80 18 122/85
[2021-09-10] MEDS: IBUPROFEN 600 MG TAB PO PRN (20:58)
[2021-09-11] MEDS: IBUPROFEN 600 MG TAB PO PRN ×3 (03:31→15:40)
[2021-09-11 07:31] LABS: Hematocrit (blood only) 20.1 % (37-47); Hemoglobin 6.7 g/dL (12.0-16.0); Mean Corpuscular Hemoglobin 30.7 pg (25-34); Mean Corpuscular Hgb Conc 33.3 g/dL (32-36); Mean Corpuscular Volume 92.2 fL (80-100); Mean Platelet Volume 9.6 fL (7.4-10.4); Platelet Count 135 K/uL (130-400); RDW Coefficient of Variation 13.6 % (11.5-14.5); RDW Standard Deviation 45.8 fL (36.4-46.3); Red Blood Count 2.18 M/uL (4.2-5.4); White Blood Count 12.63 K/uL (4.8-10.8)
--- NOTE | 2021-09-11 08:00 | Obstetrical Progress Note ---
Date of Service September 11, 2021 Assessment & Plan (1) care and examination: (2) hemorrhage: (3) Gestational diabetes mellitus (GDM) affecting , antepartum: (4) Severe anemia: stable, routine care. as i write this note, pt hgb returns at 6.7, even though asymptomatic. rec additional blood 1-2 units. will plan post hgb and go from there. overall bps have been ok but will watch trend. reviewed d/c instructions, use of iron and pp check with pt in case able to go home later today. Day #:: 2 Subjective Ambulation: ambulating normally Voiding: no voiding problems Diet Tolerance:: regular diet Lochia:: Small Feeding Type:: breast feeding no pain issues. denies issues with lightheadedness, dizziness. feels well. wants to try to go home later if today goes well. Constitutional: + as per Subjective / HPI Physical Exam Constitutional WD/WN, vitals as above Respiratory normal respiratory effort, lungs clear to auscultation Cardiovascular Rate/Rhythm: regular rate and regular rhythm Gastrointestinal (Abdomen) Inspection/Auscultation: abdomen normal to inspection Percussion/Palpation: abdomen soft Fundus firm 1cm down, nt Musculoskeletal nt calves tr edema Neurologic grossly normal Psychiatric A+Ox3, euthymic affect Results & Data ([facility]) Vital Signs (Past 12 Hours) Vital Signs Temp Pulse Resp BP Pulse Ox 09/11/21 03:15 97.7 F 78 16 140/88 97 09/10/21 23:25 98.8 F 66 16 137/99 97 09/10/21 20:45 98.4 F 75 16 118/81
[2021-09-11] MEDS ORDERED: SODIUM CHLORIDE 0.9% 250 ML IV PRN ×2 (08:08→08:09)
[2021-09-11] MEDS: PRENATAL VITAMIN 1 TAB PO SCH (08:22)
[2021-09-11] MEDS: DOCUSATE SODIUM 100 MG CAP PO SCH (08:22)
[2021-09-11 19:18] LABS: Hematocrit (blood only) 27.8 % (37-47); Hemoglobin 9.5 g/dL (12.0-16.0)
--- NOTE | 2021-09-19 14:24 | Coding Query ---
ANEMIA To promote full compliance with coding requirements relating to patient care, physician participation is requested in all cases of customer account manager uncertainty. Please assist us with the question(s) below: Coding Question(s): The record reflects the following clinical findings: The 09/11 Progress Note documents, "Severe anemia: stable, routine care. as i write this note, pt hgb returns at 6.7, even though asymptomatic. rec additional blood 1-2 units. will plan post hgb and go from there.". If these findings are indicative of anemia, please specify the known or suspected type by placing an "X" within the parenthesis (x). If other, please document type. Examples are: (x ) Acute blood loss anemia ( ) Acute Postoperative blood loss anemia ( ) Acute postoperative anemia due to dilutional fluids ( ) Chronic blood loss anemia ( ) Anemia of chronic disease ( ) Aplastic anemia ( ) Anemia due to renal disease ( ) Anemia in neoplastic disease ( ) Iron deficient anemia ( ) Anemia, unspecified or other ( ) Other: (please specify) ( ) Unable to determine Thank you Kristin Shah [facility]ITALAndres
== END 2021-09-11 22:25 | disposition home or self-care (01) | DRG 768 ==
LOC: OPB 10:18 → 4S1 10:19 → 4S2 09-10 15:00